=== PATIENT | male | born 1970 | race Two or more races ===

== ENCOUNTER 2017-09-18 21:33 | Emergency (ER) | payer MEDICAID, OTHER ==
[~2017-09-18] VITALS: Ht 185.4 cm; Wt 90.7 kg
[2017-09-18] MEDS: SODIUM CHLORIDE 0.9% 1,000 ML IVB SCH (22:15)
[2017-09-18 22:37] LABS: Basophils # (auto) 0 uL; Basophils % (auto) 0.6 % (0.0-2.0); Eosinophils # (auto) 0.2 uL; Eosinophils % (auto) 2.9 % (0.0-7.0); Hematocrit 41.7 % (41.0-53.0); Hemoglobin 13.7 g/dL (13.5-17.5); Lymphocytes # (auto) 2.1 uL; Mean Corpuscular Hemoglobin 29.1 pg (28.0-32.0); Mean Corpuscular Hgb Conc. 32.9 g/dL (32.0-36.0); Mean Corpuscular Volume 88.5 fL (80.0-100.0); Monocytes # (auto) 0.7 uL; Monocytes % (auto) 10.8 % (0.0-12.0); Neutrophils # (auto) 3.7 uL; Neutrophils % (auto) 54.7 % (37.0-80.0); Nucleated Red Blood Cells % 0.2 %; Platelet Count (auto) 232 10^3/uL (140-450); Red Cell Distribution Width 14.9 % (11.8-14.3); White Blood Cell 6.8 10^3/uL (4.4-10.8)
[2017-09-18 22:59] LABS: Albumin 3.3 g/dL (3.4-5.0); Alkaline Phosphatase 110 U/L (45-117); Anion Gap 7 (5-15); Aspartate Aminotransferase 18 U/L (15-37); BUN/Creatinine Ratio 12.4; Bilirubin, Total 0.2 mg/dL (0.2-1.0); Blood Urea Nitrogen 14 mg/dL (7-18); Calcium 8.3 mg/dL (8.5-10.1); Carbon Dioxide 28 mmol/L (21-32); Chloride 108 mmol/L (98-107); GFR African American 89 mL/min; GFR Non-African American 73 mL/min; Glucose 101 mg/dL (74-106); INR 0.95 (0.9-1.15); Magnesium 2.3 mg/dL (1.6-2.6); Partial Thromboplastin Time 27.1 sec (22.64-33.71); Potassium 3.9 mmol/L (3.5-5.1); Prothrombin Time 10.3 sec (9.37-12.3); Sodium 143 mmol/L (136-145); Total Protein 6.9 g/dL (6.4-8.2)
[2017-09-18] MEDS ORDERED: ASPirin 81 mg TAB ONE (23:47)
[2017-09-19] MEDS ORDERED: ASPirin 81 mg TAB PO ONE
[2017-09-19 03:01] VITALS: BP 138/87
[2017-09-19] MEDS: SODIUM CHLORIDE 0.9% 1,000 ML IVB SCH (03:16)
[2017-09-19] MEDS ORDERED: PHENYTOIN IV DILANTIN 1,000 MG in SODIUM CHL 0.9% 250 ML IV ONE (03:30)
[2017-09-19] MEDS ORDERED: PHENYTOIN SODIUM 50 MG/ML 2ML VIAL IV ONE (03:32)
== END 2017-09-19 03:43 | disposition home or self-care (01) ==
LOC: EDBD 21:33 → ER 21:38
DX: G40.909 Epilepsy, unspecified, not intractable, without status epilepticus (principal); F17.210 Nicotine dependence, cigarettes, uncomplicated
CPT/HCPCS: 36415; 70450; 71010; 80053; 80164; 80185; 80307; 80320; 83735; 85025; 85610; 85730; 93005; 96361; 96374; 99285; J1165; J7050; 96365